=== PATIENT | male | born 1985 | race Caucasian/White ===

== ENCOUNTER 2024-05-16 12:25 | Emergency (ER) | payer BC ==
[2024-05-16] MEDS: Sodium Chloride 0.9% 100 ML IV SCH (13:05)
[2024-05-16] MEDS: Sodium Chloride 0.9% 10 ML Syringe FLUSH ONE (13:05)
[2024-05-16] MEDS: Iopamidol 612 MG/ML 100 ML Bottle IVPUSH ONE (13:05)
[2024-05-16] MEDS: oxyCODONE 5 MG Tab PO ONE (13:18)
[2024-05-16] MEDS: Ondansetron 4 MG Tab.DIS PO ONE (13:18)
[2024-05-16] MEDS: Acetaminophen 325 MG Tab PO ONE (13:18)
== END 2024-05-16 15:05 | disposition home or self-care (01) ==
LOC: JD.ED 12:25
DX: S22.31XA Fracture of one rib, right side, initial encounter for closed fracture (principal); W11.XXXA Fall on and from ladder, initial encounter
CPT/HCPCS: 71260; 74177; 99283; A9270; Q9967